=== PATIENT | male | born 1960 | race Hispanic/Latino ===

== ENCOUNTER 2017-08-17 19:22 | Emergency (ER) | payer OTHER ==
[2017-08-17 20:09] VITALS: BP 129/96
[2017-08-17] MEDS ORDERED: TORADOL IM ONE (21:08)
[2017-08-17] MEDS ORDERED: ULTRAM PO ONE (21:08)
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
== END 2017-08-17 21:42 | disposition home or self-care (01) ==
LOC: ED 19:22
DX: S50.812A Abrasion of left forearm, initial encounter (principal); I10 Essential (primary) hypertension; E78.00 Pure hypercholesterolemia, unspecified; F17.200 Nicotine dependence, unspecified, uncomplicated; V89.2XXA Person injured in unspecified motor-vehicle accident, traffic, initial encounter; Y93.89 Activity, other specified; Y92.89 Other specified places as the place of occurrence of the external cause; Y99.8 Other external cause status
CPT/HCPCS: 73060; 73090; 96372; 99284; J1885

== ENCOUNTER 2017-08-22 13:28 | Outpatient (CLI) | payer BC ==
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
== END 2017-08-22 13:29 | disposition home or self-care (01) ==
LOC: SPVIMAG 13:28
PROVIDERS: ATTEND Orthopaedic Surgery
DX: S42.402A Unspecified fracture of lower end of left humerus, initial encounter for closed fracture (principal); X58.XXXA Exposure to other specified factors, initial encounter; Y93.89 Activity, other specified; Y92.89 Other specified places as the place of occurrence of the external cause; Y99.8 Other external cause status